=== PATIENT | female | born 1960 | race Caucasian/White ===

== ENCOUNTER 2019-05-30 17:30 | Inpatient (IN) | payer OTHER ==
[2019-05-30 18:26] VITALS: BMI 54.4
[2019-05-30] MEDS: Pravastatin Sodium 20 MG TAB PO SCH (20:13)
[2019-05-30] MEDS: Aspirin Chewable 81 MG TAB PO SCH (20:13)
[2019-05-30] MEDS: Bupropion 150 MG XL TAB PO SCH (20:13)
[2019-05-30] MEDS: Loratadine 10 MG TAB PO SCH (20:13)
[2019-05-30] MEDS: Citalopram 20 MG TAB PO SCH (20:13)
[2019-05-30] MEDS: (Inulin/Chromium Picolinate [Fiber Gummies] 1 EACH) PO SCH (20:13)
[2019-05-30] MEDS: GABAPENTIN ENACARBIL PO SCH (20:13)
[2019-05-31 05:17] LABS: #Basophils 0.1 thou/uL (0.0-0.2); #Eosinphils 0.4 thou/uL (0.0-0.7); #Lymphocytes 2.4 thou/uL (1.20-3.40); #Monocytes 0.6 thou/uL (0.11-0.59); #Neutrophils 4.5 thou/uL (1.40-6.50); %Basophils 1.3 % (0.0-1.0); %Monocytes 7.5 % (0.0-10.0); %Neutrophils 56.1 % (42.0-75.0); Mean Corpuscular HGB CONC 32.4 g/dL (32.0-36.0); Mean Corpuscular Hemoglobin 28.1 pg (27.0-31.0); Mean Corpuscular Volume 86.6 fL (78.0-98.0); Mean Platelet Volume 5.8 fL (7.4-10.4); Platelet Count 295 thou/uL (130-400); RBC Distribution Width 12.7 % (11.5-14.5); Red Blood Cell (RBC) Count 3.56 mill/uL (4.20-5.40)
[2019-05-31 05:30] LABS: ALT (SGPT) 17 U/L (8-55); AST (SGOT) 21 U/L (5-34); Albumin 3.2 g/dL (3.5-5.0); Alkaline Phosphatase 80 U/L (40-110); Anion Gap 13 mmol/L (10-20); BUN (Urea Nitrogen) 15 mg/dL (9.8-20.1); Bilirubin, Total 0.5 mg/dL (0.2-1.2); Calc. Creatinine Clearance 202 mL/min (70-130); Calcium 8.5 mg/dL (7.8-10.44); Carbon Dioxide 28 mmol/L (22-29); Chloride 100 mmol/L (98-107); Estimated GFR-MDRD 87; Globulin 2.6 g/dL (2.4-3.5); Glucose 105 mg/dL (70-105); Potassium 3.9 mmol/L (3.5-5.1); Protein, Total 5.8 g/dL (6.0-8.3); Sodium 137 mmol/L (136-145)
[2019-05-31] MEDS: Multivitamin W/ Minerals 1 TAB PO SCH (08:12)
[2019-05-31] MEDS: Amlodipine 5 MG TAB PO SCH (08:13)
[2019-05-31] MEDS: Lisinopril 10 MG TAB PO SCH (08:13)
[2019-05-31] MEDS: Meloxicam 7.5 MG TAB PO SCH (08:13)
[2019-05-31] MEDS: Aspirin Chewable 81 MG TAB PO SCH ×2 (08:14→20:02)
[2019-05-31] MEDS: (Icosapent Ethyl [Vascepa] 2 GM) PO SCH ×2 (08:16→18:03)
[2019-05-31] MEDS ORDERED: FLU VACC QS2019-20(6MOS UP)/PF 60 MCG/0.5 ML SYRINGE IM ONE (09:00)
[2019-05-31] MEDS ORDERED: AMLODIPINE PO SCH (09:00)
[2019-05-31] MEDS ORDERED: BENAZEPRIL PO SCH (09:00)
[2019-05-31] MEDS: GABAPENTIN ENACARBIL PO SCH (19:23)
[2019-05-31] MEDS: (Inulin/Chromium Picolinate [Fiber Gummies] 1 EACH) PO SCH (19:24)
[2019-05-31] MEDS: Citalopram 20 MG TAB PO SCH (20:02)
[2019-05-31] MEDS: Bupropion 150 MG XL TAB PO SCH (20:02)
[2019-05-31] MEDS: Pravastatin Sodium 20 MG TAB PO SCH (20:02)
[2019-05-31] MEDS: Loratadine 10 MG TAB PO SCH (20:02)
[2019-05-31] MEDS: traMADol HCl 50 MG TAB PO PRN (23:43)
[2019-06-01] MEDS: Amlodipine 5 MG TAB PO SCH (08:17)
[2019-06-01] MEDS: Meloxicam 7.5 MG TAB PO SCH (08:18)
[2019-06-01] MEDS: Multivitamin W/ Minerals 1 TAB PO SCH (08:18)
[2019-06-01] MEDS: Lisinopril 10 MG TAB PO SCH (08:18)
[2019-06-01] MEDS: Aspirin Chewable 81 MG TAB PO SCH ×2 (08:18→20:26)
[2019-06-01] MEDS: (Icosapent Ethyl [Vascepa] 2 GM) PO SCH ×2 (08:46→16:52)
[2019-06-01] MEDS: (Inulin/Chromium Picolinate [Fiber Gummies] 1 EACH) PO SCH (18:45)
[2019-06-01] MEDS: GABAPENTIN ENACARBIL PO SCH (18:45)
[2019-06-01] MEDS: Pravastatin Sodium 20 MG TAB PO SCH (20:26)
[2019-06-01] MEDS: Senokot S 8.6-50 MG TAB PO SCH (20:26)
[2019-06-01] MEDS: Bupropion 150 MG XL TAB PO SCH (20:26)
[2019-06-01] MEDS: Loratadine 10 MG TAB PO SCH (20:26)
[2019-06-01] MEDS: Citalopram 20 MG TAB PO SCH (20:26)
--- NOTE | 2019-06-01 20:48 | PRG ---
DATE OF SERVICE: 05/31/2019 SUBJECTIVE: The patient feels well, resting in bed. She has not had therapy, but is ready for more therapy. She is not having much pain and not requiring hydrocodone. OBJECTIVE: VITAL SIGNS: Shows blood pressure is 121/58, temperature is 98, pulse 82, respirations 18, O2 sats 97% on room air. LUNGS: Clear. CARDIAC: Regular rhythm. ABDOMEN: Soft, nontender. SKIN/EXTREMITIES: Shows healing left lateral hip incision. ASSESSMENT: 1. Resolving left total hip. 2. Stable hypertension. 3. Stable anxiety and depression. PLAN: 1. Continue therapy in the bed. 2. Continue pain relief as needed. 3. Continue blood pressure control. Job ID: [id number]
--- NOTE | 2019-06-01 20:53 | PRG ---
DATE OF SERVICE: 06/01/2019 SUBJECTIVE: The patient feels well. Awaiting therapy tomorrow. Has only complaints of need for mild laxative and request for a milder pain pill and hydrocodone. OBJECTIVE: VITAL SIGNS: Temperature is 97.4, pulse 89, respirations 18, O2 sats 97% on room air, and blood pressure 133/67. LABORATORY DATA: Done yesterday showed hematocrit of 30, hemoglobin 10, white count 8,000. Sodium 137, potassium 3.9, chloride 100, bicarb 28, BUN 15, and creatinine 0.69. AST 21, ALT 17, protein 5.8, and albumin 3.2. ASSESSMENT: 1. Resolving left total hip. 2. Hypertension, controlled to goal. 3. Postoperative constipation. 4. Stable anxiety and depression. PLAN: Senokot one daily as needed. Tylenol as needed for mild pain. Continue Marsteller as needed for severe pain. Continue blood pressure medications. Dr. Schneider will be back tomorrow. Job ID: [id number]
--- NOTE | 2019-06-01 21:51 | HP ---
HISTORY OF PRESENT ILLNESS: The patient is a 58-year-old white female, who was admitted to the skilled unit after having left total hip replacement by Dr. Marc Castro on May 27. She did well postoperatively with no complaints, or comorbidities including hypertension, which has been well controlled, and significant obesity with a BMI of 51. However, she is felt to be stable to be admitted to the skilled unit to continue PT and OT and she presented on May 30. She has minimal to moderate pain in her left hip, requiring only occasional hydrocodone, but is requesting Tylenol usually. She also has had good control of her hypertension on her prehospitalization medications of amlodipine 5 mg daily and lisinopril 10 mg daily. She also has taken her routine meloxicam 50 mg daily, citalopram 20 mg daily, and Wellbutrin (bupropion) 300 mg daily. She does also take Vascepa 2 g twice daily at home, but has not been given that here and is taking pravastatin 20 mg nightly. Her hyperlipidemia and hypertriglyceridemia have been well controlled for years. Her anxiety and depression have been very stable. Her left hip is replaced because of a long history of left hip pain from osteoarthritis. PAST SURGICAL HISTORY: Positive for , bilateral tubal ligation. FAMILY MEDICAL HISTORY: Positive for hypertension, heart disease. ALLERGIES: SHE HAS NO KNOWN ALLERGIES. REVIEW OF SYSTEMS: HEENT: She denies any headaches, dizziness, change in vision or hearing, hoarseness, or dysphagia. PULMONARY: She denies cough, sputum production, pneumonia, asthma, or tuberculosis. CARDIOVASCULAR: Denies chest pain, orthopnea, paroxysmal nocturnal dyspnea, or palpitations. GASTROINTESTINAL: She denies nausea, vomiting, diarrhea, constipation, or abdominal pain. GENITOURINARY: Denies dysuria, hematuria, or nocturia. MUSCULOSKELETAL: She has some pain in her left hip site incision. NEUROLOGIC: She denies localized numbness or weakness in arms or extremities. PHYSICAL EXAMINATION: GENERAL: The patient is a middle-aged obese white female, in no acute distress. Oriented x3 and cooperative. VITAL SIGNS: Showed to have blood pressure of 147/70, temperature of 98.5, pulse 89, respirations 14, O2 sats 94% on room air. HEENT: Pupils are equal, round, and reactive to light and accommodation. Sclerae anicteric. Conjunctivae pale. Oral mucous membranes well hydrated. NECK: Supple. There are no nodes or masses. JVP is not elevated. LUNGS: Clear. CARDIAC: Examination showed regular rhythm. ABDOMEN: Soft and nontender. SKIN/EXTREMITIES: Shows healing left lateral hip incision. No edema, clubbing, or cyanosis. NEUROLOGICAL: Intact. LABORATORY DATA: Show white count of 9100, hematocrit 32, hemoglobin 11. Sodium is not done. ASSESSMENT: 1. Resolving left total hip, admitted inpatient for longterm rehab. 2. Hypertension, controlled to goal. 3. Hyperlipidemia, stable on medications. 4. Depression and anxiety, stable. PLAN: 1. Continue home medications. 2. Start PT, OT. 3. Continue pain relief per orthopedic's decision with hydrocodone. Job ID: [id number]
[2019-06-01] MEDS: Acetaminophen 500 MG TAB PO PRN (23:52)
[2019-06-02] MEDS: traMADol HCl 50 MG TAB PO PRN ×2 (01:05→08:10)
[2019-06-02] MEDS: Senokot S 8.6-50 MG TAB PO SCH ×2 (08:09→20:20)
[2019-06-02] MEDS: Multivitamin W/ Minerals 1 TAB PO SCH (08:09)
[2019-06-02] MEDS: Amlodipine 5 MG TAB PO SCH (08:09)
[2019-06-02] MEDS: (Icosapent Ethyl [Vascepa] 2 GM) PO SCH ×2 (08:09→17:05)
[2019-06-02] MEDS: Aspirin Chewable 81 MG TAB PO SCH ×2 (08:10→20:20)
[2019-06-02] MEDS: Lisinopril 10 MG TAB PO SCH (08:10)
[2019-06-02] MEDS: Meloxicam 7.5 MG TAB PO SCH (08:10)
[2019-06-02] MEDS: GABAPENTIN ENACARBIL PO SCH (20:20)
[2019-06-02] MEDS: Citalopram 20 MG TAB PO SCH (20:20)
[2019-06-02] MEDS: Bupropion 150 MG XL TAB PO SCH (20:20)
[2019-06-02] MEDS: Loratadine 10 MG TAB PO SCH (20:20)
[2019-06-02] MEDS: Pravastatin Sodium 20 MG TAB PO SCH (20:20)
[2019-06-02] MEDS: Acetaminophen 500 MG TAB PO PRN (20:20)
[2019-06-02] MEDS: (Inulin/Chromium Picolinate [Fiber Gummies] 1 EACH) PO SCH (20:21)
[2019-06-03] MEDS: traMADol HCl 50 MG TAB PO PRN (00:32)
[2019-06-03] MEDS: Acetaminophen 500 MG TAB PO PRN ×2 (02:30→22:43)
[2019-06-03] MEDS: (Icosapent Ethyl [Vascepa] 2 GM) PO SCH ×2 (08:13→16:34)
[2019-06-03] MEDS: Amlodipine 5 MG TAB PO SCH (08:14)
[2019-06-03] MEDS: Aspirin Chewable 81 MG TAB PO SCH ×2 (08:14→20:22)
[2019-06-03] MEDS: Lisinopril 10 MG TAB PO SCH (08:14)
[2019-06-03] MEDS: Senokot S 8.6-50 MG TAB PO SCH ×2 (08:15→20:22)
[2019-06-03] MEDS: Meloxicam 7.5 MG TAB PO SCH (08:15)
[2019-06-03] MEDS: Multivitamin W/ Minerals 1 TAB PO SCH (08:15)
--- NOTE | 2019-06-03 10:37 | PRG ---
DATE OF SERVICE: 06/03/2019 SUBJECTIVE: Ms. Johnston is a very pleasant 58-year-old white female, who had a total left hip done by Dr. Marc Castro on May 27. Postoperatively, she had some significant weakness and unfortunately lives by herself. She was unable to get enough rehab to go home, so she was admitted to [facility] for physical therapy and occupational therapy. The patient continued to have some pain and is usually managed either with tramadol 100 mg or Tylenol. She states she would like to get off the tramadol, so we will give her a lower dose of tramadol 50 mg and then Tylenol as needed also. VITAL SIGNS: VITAL SIGNS: Today, reveal blood pressure 127/60, pulse 86, respirations 18, O2 saturation 96% on room air, and T-max 98.3. GENERAL: This is a well-developed, well-nourished, obese white female, in no apparent distress at this time. HEENT: Reveals normocephalic and nontraumatic cranium. The pupils are equally round and reactive. Extraocular movements are intact. Nose and throat are slightly dry. NECK: Supple without masses, nodes, or bruits. CHEST: Clear to auscultation. No rales, rhonchi, or wheezes are heard. HEART: Reveals a regular rate and rhythm without murmurs, gallops, or rubs. ABDOMEN: Obese, soft, and nontender. No rebound or guarding is noted. : Deferred. EXTREMITIES: Reveal left lateral hip incision without any significant drainage. No significant edema noted. No clubbing or cyanosis is noted. NEUROLOGIC: The patient is intact. ASSESSMENT: 1. Total left hip, done by Dr. Castro, [facility] [place] [facility] and OT. 2. Hypertension, well controlled. 3. Hyperlipidemia. 4. Anxiety and depressive disorder. 5. Generalized weakness. 6. Pain management. PLAN: 1. Continue present medication. 2. Continue physical therapy and occupational therapy. 3. Decrease tramadol to 50 mg for pain level 1 through 4 and 100 mg for pain level 5 through 7. 4. Add Tylenol 500 mg p.r.n. to a max dose of 3000 mg in a day. Job ID: [id number]
[2019-06-03] MEDS: (Inulin/Chromium Picolinate [Fiber Gummies] 1 EACH) PO SCH (18:44)
[2019-06-03] MEDS: GABAPENTIN ENACARBIL PO SCH (18:44)
[2019-06-03] MEDS: Loratadine 10 MG TAB PO SCH (20:22)
[2019-06-03] MEDS: Bupropion 150 MG XL TAB PO SCH (20:22)
[2019-06-03] MEDS: Pravastatin Sodium 20 MG TAB PO SCH (20:22)
[2019-06-03] MEDS: Citalopram 20 MG TAB PO SCH (20:22)
[2019-06-04] MEDS: Lisinopril 10 MG TAB PO SCH (08:02)
[2019-06-04] MEDS: Multivitamin W/ Minerals 1 TAB PO SCH (08:02)
[2019-06-04] MEDS: Senokot S 8.6-50 MG TAB PO SCH ×2 (08:02→20:05)
[2019-06-04] MEDS: Meloxicam 7.5 MG TAB PO SCH (08:03)
[2019-06-04] MEDS: Aspirin Chewable 81 MG TAB PO SCH ×2 (08:03→20:04)
[2019-06-04] MEDS: Amlodipine 5 MG TAB PO SCH (08:03)
[2019-06-04] MEDS: (Icosapent Ethyl [Vascepa] 2 GM) PO SCH ×2 (08:05→18:26)
[2019-06-04] MEDS: Acetaminophen 500 MG TAB PO PRN (14:46)
[2019-06-04] MEDS: Bupropion 150 MG XL TAB PO SCH (20:04)
[2019-06-04] MEDS: Citalopram 20 MG TAB PO SCH (20:04)
[2019-06-04] MEDS: GABAPENTIN ENACARBIL PO SCH (20:05)
[2019-06-04] MEDS: Pravastatin Sodium 20 MG TAB PO SCH (20:05)
[2019-06-04] MEDS: Loratadine 10 MG TAB PO SCH (20:05)
[2019-06-05] MEDS: Acetaminophen 500 MG TAB PO PRN ×2 (00:12→13:39)
[2019-06-05] MEDS: traMADol HCl 50 MG TAB PO PRN ×2 (01:11→23:38)
[2019-06-05] MEDS: Multivitamin W/ Minerals 1 TAB PO SCH (08:39)
[2019-06-05] MEDS: Lisinopril 10 MG TAB PO SCH (08:39)
[2019-06-05] MEDS: Senokot S 8.6-50 MG TAB PO SCH ×2 (08:40→20:44)
[2019-06-05] MEDS: Amlodipine 5 MG TAB PO SCH (08:41)
[2019-06-05] MEDS: Aspirin Chewable 81 MG TAB PO SCH ×2 (08:41→20:44)
[2019-06-05] MEDS: (Icosapent Ethyl [Vascepa] 2 GM) PO SCH ×2 (08:41→18:23)
[2019-06-05] MEDS ORDERED: Meloxicam 7.5 MG TAB PO SCH (09:00)
[2019-06-05] MEDS: Pravastatin Sodium 20 MG TAB PO SCH (20:44)
[2019-06-05] MEDS: Loratadine 10 MG TAB PO SCH (20:44)
[2019-06-05] MEDS: Citalopram 20 MG TAB PO SCH (20:44)
[2019-06-05] MEDS: Bupropion 150 MG XL TAB PO SCH (20:44)
[2019-06-05] MEDS: GABAPENTIN ENACARBIL PO SCH (20:44)
[2019-06-06] MEDS: (Icosapent Ethyl [Vascepa] 2 GM) PO SCH ×2 (09:00→16:23)
[2019-06-06] MEDS: Aspirin Chewable 81 MG TAB PO SCH ×2 (09:39→21:50)
[2019-06-06] MEDS: Multivitamin W/ Minerals 1 TAB PO SCH (09:39)
[2019-06-06] MEDS: Lisinopril 10 MG TAB PO SCH (09:39)
[2019-06-06] MEDS: Meloxicam 7.5 MG TAB PO SCH (09:40)
[2019-06-06] MEDS: Amlodipine 5 MG TAB PO SCH (09:40)
[2019-06-06] MEDS: Senokot S 8.6-50 MG TAB PO SCH ×2 (09:40→21:50)
[2019-06-06] MEDS: Acetaminophen 500 MG TAB PO PRN ×2 (09:53→21:51)
--- NOTE | 2019-06-06 17:15 | PRG ---
DATE OF SERVICE: 06/05/2019 SUBJECTIVE: The patient is sitting up in chair, feels well, has been cooperating with physical therapy, and is getting much stronger. She is having decreasing pain. PT report states that she is cooperating very well, walking 600 feet and then 146 feet with a rolling walker and supervision. Doing hip extensions, hip flexions with [id number] pain, controlled with medication. No other complaints. OBJECTIVE: LUNGS: Clear. CARDIAC: Regular rhythm. ABDOMEN: Soft, nontender. VITAL SIGNS: Blood pressure of 143/65, temperature is 98, pulse 76, respirations 20, O2 sats 96% on room air. ASSESSMENT: 1. Resolving left total hip. 2. Improving deconditioning. 3. Stable hypertension. 4. Stable anxiety and depression. PLAN: 1. Continue PT/OT. 2. Continue to monitor vital signs closely with therapy. 3. Discuss discharge planning with Physical therapy. Job ID: [id number]
--- NOTE | 2019-06-06 17:33 | PRG ---
DATE OF SERVICE: 06/06/2019 SUBJECTIVE: The patient feels well, no pain, only having to take pain medication to sleep at night. She is cooperating well with therapy and her pain medication is only meloxicam and is not required at that time. She is taking gabapentin and bupropion. She is having no problems with constipation, anorexia. She is transferring without assistance and is going to the bathroom with only standby assistance. OBJECTIVE: LUNGS: Clear. CARDIAC: Regular rhythm. ABDOMEN: Soft and nontender. SKIN/EXTREMITIES: Display no edema, clubbing, or cyanosis. Healing left lateral hip incision. ASSESSMENT: 1. Resolving left total hip. 2. Stable hypertension. 3. Improved anxiety. PLAN: 1. Continue PT/OT. 2. Continue to monitor vital signs closely. 3. Continue to monitor for anxiety. 4. Dr. Schneider will be back on Sunday. Job ID: [id number]
[2019-06-06] MEDS: Bupropion 150 MG XL TAB PO SCH (21:50)
[2019-06-06] MEDS: Pravastatin Sodium 20 MG TAB PO SCH (21:50)
[2019-06-06] MEDS: Loratadine 10 MG TAB PO SCH (21:51)
[2019-06-06] MEDS: Citalopram 20 MG TAB PO SCH (21:51)
[2019-06-06] MEDS: GABAPENTIN ENACARBIL PO SCH (21:51)
[2019-06-07] MEDS: (Icosapent Ethyl [Vascepa] 2 GM) PO SCH ×2 (08:04→16:44)
[2019-06-07] MEDS: Amlodipine 5 MG TAB PO SCH (08:07)
[2019-06-07] MEDS: Lisinopril 10 MG TAB PO SCH (08:09)
[2019-06-07] MEDS: Multivitamin W/ Minerals 1 TAB PO SCH (08:09)
[2019-06-07] MEDS: Meloxicam 7.5 MG TAB PO SCH (08:09)
[2019-06-07] MEDS: Aspirin Chewable 81 MG TAB PO SCH ×2 (08:09→20:20)
[2019-06-07] MEDS: Senokot S 8.6-50 MG TAB PO SCH ×2 (08:09→20:20)
--- NOTE | 2019-06-07 15:45 | PRG ---
DATE OF SERVICE: 06/07/2019 SUBJECTIVE: Ms. Johnston is doing well. Denies any complaints. Pain is controlled. Discussed with Nursing. OBJECTIVE: VITAL SIGNS: She is afebrile, heart rate 70, respirations 20, blood pressure 138/63, oxygen saturation 94% on room air. CARDIOVASCULAR SYSTEM: S1 and S2 plus. RESPIRATORY SYSTEM: Normal vesicular breath sounds. ABDOMEN: Soft. Nontender. Bowel sounds heard in all quadrants. EXTREMITIES: Without cyanosis or clubbing. Trace left leg edema. CENTRAL NERVOUS SYSTEM: Awake and responsive. Generalized weakness. SKIN: Left hip incision is healthy. IMPRESSION: 1. Osteoarthritis, status post total left hip replacement. 2. Hypertension. 3. Morbid obesity. 4. Depression. 5. Dyslipidemia. PLAN: 1. Continue current medications. 2. Heart healthy diet. 3. Monitor blood pressure and adjust medications as needed. 4. Orthopedic precautions and incision care. 5. Continue physical therapy and occupational therapy. 6. Routine laboratory values. 7. DVT prophylaxis per Orthopedic recommendations. 8. Decubitus precautions. 9. Stress ulcer prophylaxis. Job ID: [id number]
[2019-06-07] MEDS: Pravastatin Sodium 20 MG TAB PO SCH (20:20)
[2019-06-07] MEDS: Loratadine 10 MG TAB PO SCH (20:20)
[2019-06-07] MEDS: Bupropion 150 MG XL TAB PO SCH (20:20)
[2019-06-07] MEDS: Citalopram 20 MG TAB PO SCH (20:20)
[2019-06-07] MEDS: GABAPENTIN ENACARBIL PO SCH (20:21)
[2019-06-08] MEDS: Acetaminophen 500 MG TAB PO PRN ×2 (01:07→10:26)
[2019-06-08] MEDS: Lisinopril 10 MG TAB PO SCH (08:03)
[2019-06-08] MEDS: Aspirin Chewable 81 MG TAB PO SCH ×2 (08:03→20:31)
[2019-06-08] MEDS: (Icosapent Ethyl [Vascepa] 2 GM) PO SCH ×2 (08:03→17:00)
[2019-06-08] MEDS: Amlodipine 5 MG TAB PO SCH (08:03)
[2019-06-08] MEDS: Senokot S 8.6-50 MG TAB PO SCH ×2 (08:04→20:31)
[2019-06-08] MEDS: Meloxicam 7.5 MG TAB PO SCH (08:04)
[2019-06-08] MEDS: Multivitamin W/ Minerals 1 TAB PO SCH (08:04)
--- NOTE | 2019-06-08 16:25 | PRG ---
DATE OF SERVICE: 06/08/2019 SUBJECTIVE: Ms. Johnston is up in her chair and denies any complaints. Her mom is visiting her. Pain is controlled. OBJECTIVE: VITAL SIGNS: She is afebrile. Heart rate 79, respirations 18, oxygen saturation 97% on room air, and blood pressure 146/67. CARDIOVASCULAR SYSTEM: S1 and S2 plus. RESPIRATORY SYSTEM: Normal vesicular breath sounds. ABDOMEN: Soft and nontender. Bowel sounds heard in all quadrants. EXTREMITIES: Without cyanosis or clubbing. Peripheral pulses are palpable. CENTRAL NERVOUS SYSTEM: Grossly nonfocal. SKIN: Hip incision is healthy. IMPRESSION: 1. Osteoarthritis, status post left total hip replacement. 2. Hypertension. 3. Depression. 4. Dyslipidemia. 5. Morbid obesity. PLAN: 1. Continue current medications. 2. Nutritional support with heart-healthy diet. 3. Orthopedic precautions and incision care. 4. Continue PT and OT. 5. Routine laboratory values. 6. DVT prophylaxis per orthopedic precautions. Job ID: [id number]
[2019-06-08] MEDS: Citalopram 20 MG TAB PO SCH (20:31)
[2019-06-08] MEDS: Loratadine 10 MG TAB PO SCH (20:31)
[2019-06-08] MEDS: Pravastatin Sodium 20 MG TAB PO SCH (20:31)
[2019-06-08] MEDS: Bupropion 150 MG XL TAB PO SCH (20:31)
[2019-06-08] MEDS: GABAPENTIN ENACARBIL PO SCH (20:32)
[2019-06-09] MEDS: (Icosapent Ethyl [Vascepa] 2 GM) PO SCH ×2 (08:03→18:24)
[2019-06-09] MEDS: Multivitamin W/ Minerals 1 TAB PO SCH (08:31)
[2019-06-09] MEDS: Senokot S 8.6-50 MG TAB PO SCH ×2 (08:31→20:09)
[2019-06-09] MEDS: Lisinopril 10 MG TAB PO SCH (08:31)
[2019-06-09] MEDS: Amlodipine 5 MG TAB PO SCH (08:32)
[2019-06-09] MEDS: Aspirin Chewable 81 MG TAB PO SCH ×2 (08:32→20:08)
[2019-06-09] MEDS: Meloxicam 7.5 MG TAB PO SCH (08:32)
--- NOTE | 2019-06-09 10:14 | PRG ---
DATE OF SERVICE: 06/09/2019 SUBJECTIVE: Ms. Johnston is a very pleasant 58-year-old white female, who had a total left hip done by Dr. Marc Castro on May 27. Postoperatively, she had significant weakness. She was transferred to inpatient rehab for physical therapy and occupational therapy. She has actually been doing very well and is nearing her maximum medical benefit. OBJECTIVE: VITAL SIGNS: Today reveal blood pressure 140/63, pulse 69, respirations 16, O2 saturation 95% to 96% on room air, and T-max 97.9. GENERAL: This is a well-developed, well-nourished, obese white female, in no apparent distress at this time. HEENT: Reveals normocephalic and nontraumatic cranium. Pupils equal, round, and reactive. Extraocular movements are intact. Nose and throat are slightly dry. NECK: Supple without masses, nodes, or bruits. CHEST: Clear to auscultation. No rales, rhonchi, wheezes, or cough is heard. HEART: Reveals a regular rate and rhythm without murmurs, gallops, or rubs. ABDOMEN: Morbidly obese, soft, nontender without organomegaly. Normal bowel sounds in all 4 quadrants. No rebound or guarding is noted. : Deferred. EXTREMITIES: Reveal no clubbing or cyanosis. Trace edema. Hip incision continues to heal well. IMPRESSION: 1. Osteoarthritis, status post open reduction and internal fixation, left hip. 2. Hypertension. 3. Hyperlipidemia. 4. Depression. 5. Morbid obesity. PLAN: 1. Continue present medications. 2. Continue healthy heart diet. 3. Continue physical therapy and occupational therapy. 4. Stress ulcer prophylaxis. 5. Decubitus precautions. 6. DVT prophylaxis with orthopedic precautions. 7. Generalized weakness. 8. Continue physical therapy and occupational therapy. 9. Anticipate discharge soon. Job ID: [id number]
[2019-06-09] MEDS: Bupropion 150 MG XL TAB PO SCH (20:08)
[2019-06-09] MEDS: Citalopram 20 MG TAB PO SCH (20:08)
[2019-06-09] MEDS: GABAPENTIN ENACARBIL PO SCH (20:09)
[2019-06-09] MEDS: Loratadine 10 MG TAB PO SCH (20:09)
[2019-06-09] MEDS: Pravastatin Sodium 20 MG TAB PO SCH (20:09)
[2019-06-10] MEDS: Acetaminophen 500 MG TAB PO PRN ×3 (00:01→20:47)
[2019-06-10] MEDS: Amlodipine 5 MG TAB PO SCH (08:24)
[2019-06-10] MEDS: Senokot S 8.6-50 MG TAB PO SCH ×2 (08:25→20:47)
[2019-06-10] MEDS: Meloxicam 7.5 MG TAB PO SCH (08:25)
[2019-06-10] MEDS: Aspirin Chewable 81 MG TAB PO SCH ×2 (08:25→20:46)
[2019-06-10] MEDS: Multivitamin W/ Minerals 1 TAB PO SCH (08:25)
[2019-06-10] MEDS: Lisinopril 10 MG TAB PO SCH (08:25)
[2019-06-10] MEDS: (Icosapent Ethyl [Vascepa] 2 GM) PO SCH ×2 (09:09→16:49)
--- NOTE | 2019-06-10 09:30 | PRG ---
DATE OF SERVICE: 06/10/2019 SUBJECTIVE: Ms. Johnston is a 58-year-old white female, who had a total left knee electively done by Dr. Marc Castro on May 27. Postoperatively, she continued with some weakness and was in need of inpatient rehab. She was transferred to [facility] for physical therapy and occupational therapy to increase her strength, stamina, balance. The patient states she is doing very well, and we will discharge her tomorrow after therapy. PHYSICAL EXAMINATION: VITAL SIGNS: Blood pressure 122/80, pulse 74, respirations 16, O2 saturation 96% on room air, and T-max 96.6. GENERAL: This is a well-developed, well-nourished, obese white female, in no apparent distress at this time. HEENT: Normocephalic and nontraumatic cranium. Pupils are equal, round, and reactive. Extraocular movements are intact. Nose and throat are slightly dry. NECK: Supple without masses, nodes, or bruits. CHEST: Clear to auscultation. No rales, rhonchi, or wheezes noted. No cough is noted. HEART: Regular rate and rhythm without murmurs, gallops, or rubs. ABDOMEN: Soft, nontender. Normal bowel sounds noted in all 4 quadrants. No rebound or guarding is noted. : Deferred. EXTREMITIES: No clubbing, cyanosis, or edema. IMPRESSION: 1. Osteoarthritis, status post open reduction and internal fixation. 2. Hypertension. 3. Hyperlipidemia. 4. Depression. 5. Morbid obesity. 6. Reached maximum medical benefit. 7. Plan on discharge tomorrow. PLAN: 1. Continue present medications. 2. Continue healthy heart diet. 3. Continue physical therapy and occupational therapy. 4. Stress ulcer prophylaxis. 5. Decubitus precautions. 6. DVT prophylaxis with orthopedic precautions. 7. Generalized weakness. 8. Continue PT and OT. 9. Work on discharging for tomorrow. Job ID: [id number]
[2019-06-10] MEDS: Bupropion 150 MG XL TAB PO SCH (20:46)
[2019-06-10] MEDS: Pravastatin Sodium 20 MG TAB PO SCH (20:47)
[2019-06-10] MEDS: Loratadine 10 MG TAB PO SCH (20:47)
[2019-06-10] MEDS: GABAPENTIN ENACARBIL PO SCH (20:47)
[2019-06-10] MEDS: Citalopram 20 MG TAB PO SCH (20:47)
[2019-06-11] MEDS: Acetaminophen 500 MG TAB PO PRN (02:30)
[2019-06-11 07:47] VITALS: BP 145/67; TEMP 97.6
[2019-06-11] MEDS: Amlodipine 5 MG TAB PO SCH (08:11)
[2019-06-11] MEDS: (Icosapent Ethyl [Vascepa] 2 GM) PO SCH (08:11)
[2019-06-11] MEDS: Aspirin Chewable 81 MG TAB PO SCH (08:12)
[2019-06-11] MEDS: Meloxicam 7.5 MG TAB PO SCH (08:12)
[2019-06-11] MEDS: Multivitamin W/ Minerals 1 TAB PO SCH (08:12)
[2019-06-11] MEDS: Senokot S 8.6-50 MG TAB PO SCH (08:12)
[2019-06-11] MEDS: Lisinopril 10 MG TAB PO SCH (08:12)
--- NOTE | 2019-06-11 11:17 | DIS ---
DATE OF ADMISSION: 05/30/2019 DATE OF DISCHARGE: 06/11/2019 HISTORY OF PRESENT ILLNESS: Ms. Johnston is a very pleasant 58-year-old white female, who had a total elective knee done by Dr. Marc Castro on May 27. Postoperatively, she had quite a bit of weakness and some pain. Dr. Castro felt that she would benefit significantly by inpatient rehab. She was transferred to [facility] for physical therapy and occupational therapy to increase her strength and stamina. The patient states she is doing great and she is ready for discharge. Her family will pick her up today at 2:30. PHYSICAL EXAMINATION: VITAL SIGNS: Today reveal blood pressure 145/67, pulse 76, respirations 18, O2 saturation 96% on room air, and T-max 97.6. GENERAL: This is a well-developed, well-nourished, pleasant white female, in no apparent distress at this time. HEENT: Reveals normocephalic and nontraumatic cranium. Pupils are equal, round, and reactive. Extraocular movements are intact. Nose and throat are slightly dry. NECK: Supple without masses, nodes, or bruits. CHEST: Clear to auscultation. No rales, rhonchi, wheezes, or cough is noted. HEART: Reveals a regular rate and rhythm without murmurs, gallops, or rubs. ABDOMEN: Soft and nontender with normal bowel sounds in all 4 quadrants. No rebound or guarding is noted. : Deferred. EXTREMITIES: Reveal no clubbing, cyanosis, or edema. Hip incision is fine. IMPRESSION: 1. Osteoarthritis, status post open reduction and internal fixation of total left hip. 2. Hypertension. 3. Hyperlipidemia. 4. Depression. 5. Obesity. 6. Generalized weakness. PLAN: 1. Continue present medications at discharge. 2. Continue healthy heart diet. 3. Continue physical therapy and occupational therapy. 4. Stress ulcer prophylaxis. 5. Ready for discharge. DISCHARGE MEDICATIONS: Include the followin. Aspirin 81 mg daily. 2. Multivitamin. 3. Fiber gummies. 4. Amlodipine 5 mg a day. 5. Meloxicam 15 mg daily. 6. Vascepa 2 g b.i.d. with meals. 7. Gabapentin 300 mg at bedtime. 8. Wellbutrin XL 300 mg daily. 9. Pravastatin 20 mg at bedtime. 10. Citalopram 20 mg at bedtime. 11. Cetirizine p.r.n. 10 mg. 12. Tramadol 50 mg with 100 mg of Tylenol. The patient states she has her tramadol prescription from Dr. Castro. Job ID: [id number]
== END 2019-06-11 14:50 | disposition home health service (06) | DRG 560 ==
LOC: NAV ACUTE 17:30
PROVIDERS: ADMIT Family Medicine; ATTEND Family Medicine
DX: Z47.1 Aftercare following joint replacement surgery (principal); Z68.43 Body mass index [BMI] 50.0-59.9, adult; I10 Essential (primary) hypertension; E78.5 Hyperlipidemia, unspecified; F41.9 Anxiety disorder, unspecified; F32.9 Major depressive disorder, single episode, unspecified; Z98.51 Tubal ligation status; Z96.642 Presence of left artificial hip joint; R53.81 Other malaise; E66.01 Morbid (severe) obesity due to excess calories
CPT/HCPCS: 80053; 85025